=== PATIENT | male | born 1985 | race African-American/Black ===

== ENCOUNTER 2022-06-14 16:34 | Emergency (ER) | payer SELFPAY ==
[2022-06-14 16:49] VITALS: BP 168/104; PULSE 89; RESP 16; TEMP 37.2; O2SAT 100
--- NOTE | 2022-06-14 16:50 | ED.DENTAL ---
HPI - Dental/Oral General Chief complaint: Dental/Oral Stated complaint: tooth pain Time Seen by Provider: 06/14/22 16:50 Source: patient and RN notes reviewed History of Present Illness HPI Narrative: patient is a 37-year-old male who presents to the Urgent Care with complaints of right upper dental pain with facial swelling. Patient states that it started 2 days ago and he has been taking ibuprofen. Patient states that he does not currently have a dentist and he has not been in some time. Patient states the tooth has been fractured for a while. Denies any fevers, nausea or vomiting. No other acute complaints. No acute distress noted. Patient aware of the plan of care. Some parts of this dictation were generated by voice recognition software and may contain typographical and/or grammatical inaccuracies. Related Data Allergies Allergy/AdvReac Type Severity Reaction Status Date / Time No Known Allergies Allergy Verified 06/14/22 16:51 Review of Systems Review of Systems: CONSTITUTIONAL: Denies fever, chills, or sweats. EYES: Denies visual changes, redness, or discharge. ENT: Reports of right upper dental pain and facial swelling CARDIOVASCULAR: Denies chest pain, palpitations, or edema. RESPIRATORY: Denies cough or dyspnea. GASTROINTESTINAL: Denies abdominal pain, nausea, vomiting, or diarrhea. GENITOURINARY: Denies dysuria or hematuria. SKIN: Denies rash or itching. MUSCULOSKELETAL: Denies back pain, joint pain, or myalgia. NEUROLOGIC: Denies headache, numbness, or weakness. All other systems reviewed are negative, except as documented in HPI. PMFSH Comments At the time of my signature, I reviewed and agree with the nursing past medical, surgical, social, and family history. There is no relevant family history pertinent to the patient complaint. Exam Narrative: GENERAL: This is a well-nourished, well-developed patient, in no apparent distress. HEAD: normocephalic, atraumatic. EYES: PERRL. Sclera clear/white. Vision is grossly intact. EARS: External ears normal, auditory canals clear and without drainage, TMs normal without perforation. Hearing grossly intact. NOSE: External nose normal with no obvious nasal discharge, nares without redness, no rhinorrhea. THROAT: Mucous membranes moist, posterior pharynx clear. DENTAL: mild to moderate right upper facial swelling without erythema. Fractured 1st right upper molar, tooth 3. Affecting tooth 4. . NECK: Neck supple, non-tender without lymphadenopathy CARDIOVASCULAR: Regular rate and rhythm without murmurs, gallops, or rubs. RESPIRATORY: Clear to auscultation. Breath sounds equal bilaterally. No wheezes, rales, or rhonchi. SKIN: warm, intact with no suspicious lesions or rash, good texture and turgor. NEURO: awake, alert, and oriented to person, place and time. There were no obvious focal neurologic abnormalities. EXTREMITIES: No clubbing, cyanosis, or edema. Course Course Level of Care: Express Care Visit Vital Signs Vital signs: Vital Signs Temperature 99 F 06/14/22 16:49 Pulse Rate 89 06/14/22 16:49 Respiratory Rate 16 06/14/22 16:49 Blood Pressure 168/104 H 06/14/22 16:49 Pulse Oximetry 100 06/14/22 16:49 Oxygen Delivery Room Air 06/14/22 16:49 Temperature 99 F 06/14/22 16:49 Pulse Rate 89 06/14/22 16:49 Respiratory Rate 16 06/14/22 16:49 Blood Pressure 168/104 H 06/14/22 16:49 Pulse Oximetry 100 06/14/22 16:49 Oxygen Delivery Room Air 06/14/22 16:49 Reviewed- Patient is informed that they may have pre-hypertension or hypertension based on a blood pressure reading in the department. I recommend the patient call the primary care provider listed on their discharge instructions or a physician of their choice this week to arrange follow-up for further evaluation of possible pre-hypertension or hypertension. MDM - Dental/Oral MDM Narrative Medical decision making narrative: advised patient to complete the oral
== END 2022-06-14 17:05 | disposition home or self-care (01) ==
PROVIDERS: Emergency Provider Nurse Practitioner Family
DX: K02.9 Dental caries, unspecified (principal); K04.7 Periapical abscess without sinus
CPT/HCPCS: 99213; G0463